=== PATIENT | female | born 1970 | race Caucasian/White ===

== ENCOUNTER 2016-03-14 17:03 | Emergency (ER) | payer MEDICAID ==
[2016-03-14 17:35] VITALS: BMI 27.5
--- NOTE | 2016-03-14 20:17 | DIRPT ---
CLINICAL DATA: 45-year-old female with history of cough and dyspnea. Congestion. Low-grade fever. Upper abdominal pain for the past several days. EXAM: CHEST 2 VIEW COMPARISON: Chest x-ray 03/20/2008. FINDINGS: Lung volumes are low. No consolidative airspace disease. No pleural effusions. No pneumothorax. No pulmonary nodule or mass noted. Pulmonary vasculature and the cardiomediastinal silhouette are within normal limits. IMPRESSION: 1. Low lung volumes without radiographic evidence of acute cardiopulmonary disease. Electronically Signed By: Fred Mackenzie M.D. On: 03/14/2016 20:15
--- NOTE | 2016-03-14 20:32 | EDPRACDOC ---
- General Information Chief Complaint: Flu-Like Symptoms Stated Complaint: COUGH/COUGH/N/V FEVER Time Seen by Provider: 03/14/16 20:24 Mode Of Arrival: Car Home Medications: Home Medications Esomeprazole Magnesium [Nexium] 20 mg PO BID 03/14/16 Levetiracetam [Keppra] 1,500 mg PO BID 03/14/16 Levothyroxine [Synthroid, Levoxyl] 50 mcg PO DAILY 03/14/16 Mirtazapine [Remeron] 7.5 - 15 mg PO HS 03/14/16 Simvastatin [Zocor] 20 mg PO QHS 03/14/16 Sumatriptan Succinate [Imitrex] 100 mg PO DAILY PRN 03/14/16 Azithromycin [Zithromax] 0 mg PO DAILY #6 tablet 03/15/16 Hydrocodone Bit/Homatropine [Hycodan Syrup] 5 ml PO Q6 PRN #120 syrup 03/15/16 Prednisone [Deltasone, Orasone] 40 mg PO DAILY 5 Days 03/15/16 Allergies/Adverse Reactions: Allergies Allergy/AdvReac Type Severity Reaction Status Date / Time No Known Allergies Allergy Verified 03/14/16 17:30 - History of Present Illness Onset: since Saturday HPI: PT HAS MULTIPLE COMPLAINTS, COMPLAINS OF NON-PROD COUGH, CONGESTION, FEVER TO 100, N/V TNTC, STATES UNABLE TO TOLERATE ANY PO INTAKE, HAS HAD "DRY HEAVES" ALL DAY, HAS HAD DIARRHEA TNTC (NONE TODAY), COMPLAINS OF DIFFUSE ABDOMINAL SORENESS AND SORE THROAT. Symptoms Occured: Reports: Spontaneous Duration: Reports: Intermittent Emesis: Reports: Food Particles Recent: Reports: None Pain Quality: Reports: Aching Pain Severity: Mild Pain Location: Reports: Diffuse History of: Denies: Abdominal Surgery, UTI, Ectopic, PID, Urolithiasis, Similar Pain (dx) Relevant History of: Denies: Abdominal Surgery, Diabetes, Contact Exposure, Hydrocephalus, HIV, Immunosuppression, Irritable Bowel Disease, Cystic Fibrosis , Lactose Intolerance, None, O Associated Signs & Symptoms: Reports: Nausea, Vomiting, Diarrhea, Fever, Other. Denies: Frequency, Vaginal Bleeding, Hematemesis, Anorexia, Melena, Dysuria, Urgency, Hematuria, Chills, Vaginal Discharge Oral Intake: Normal Urinary Output: Normal ED Past Medical History - History Reviewed Yes Nurses notes reviewed and agree except as marked - Patient Medical History Cardiac History: Reports: Hypercholesterolemia Respiratory History: Reports: COPD GI/ History: Reports: Gastroesophageal Reflux Psychological History: Reports: Depression (manic) Systemic History: Reports: Hypothyroidism. Denies: Cancer Surgical History: Reports: Hysterectomy - Social Medical History Smoking Status: Heavy tobacco smoker (5 or more cigarettes/day or daily pipe/ cigar) ("VAPES") ETOH: None Substance Abuse: None EDM Review of Systems - Review of Systems Constitutional: Fever. negative: Chills Eyes: negative: Blurred Vision, Double Vision Ears: negative: Drainage Throat: Pain Nose: Congestion Respiratory: Cough. negative: Shortness of Breath, Wheezing Cardiovascular: negative: Chest Pain, Palpitations Gastrointestinal: Diarrhea, Nausea, Pain, Vomiting Genitourinary: negative: Dysuria, Frequency Neurological: negative: Dizziness, Headache, Numbness, Weakness Musculoskeletal: No Symptoms Reported Integumentary: No Symptoms Reported - Physical Exam Constitutional: Alert (Awake), No apparent distress Oriented to: Time, Person, Place Last recorded Vital Signs: Last Vital Signs Temp 99.6 F 03/14/16 17:30 Pulse 132 H 03/14/16 17:34 Resp 18 03/14/16 17:30 BP 129/91 03/14/16 17:34 Pulse Ox 96 03/14/16 17:30 Oxygen Pulse Oxygen Saturation 96 O2 Device Room Air Oxygen Flow Rate Fraction of Inspired Oxygen ( FIO2) - HEENT Head: Normal ( normocephalic) Eye Exam: Normal (PERRL, EOMI, Sclera white) Oropharynx: Red. negative: Tonsillar Hypertrophy, [place] Tympanic Membrane: Normal ENT EAC: Normal TMJ: Normal Nose: No Symptoms Reported (septum midline) Neck: Normal (FROM, trachea at midline) - Respiratory/Cardiovascular Respiratory: Normal - CTA (BBS clear to auscultation without adventitious sounds ) Cardiovascular: Normal (RRR without murmur, gallop or rub) - GI Auscultation: Normal (NABS) Palpation: Normal (Soft,No rebound or guarding, non distended) Tenderness: Diffuse, Mild Hood's Sign: Negative - Musculoskeletal Back: Normal (Non-Tender) Extremities: Normal (Normal tone, Pulses 2+ No cyanosis or edema, FROM) - Integumentary Skin: Normal, Warm, Dry Lymphatics: Normal (no adenopathy) - Neurologic Memory Impaired: Normal Motor Function: Normal (Normal tone, Pulses 2+ No cyanosis or edema, FROM) Cranial Nerve: Normal (CN II-X11 intact sensation, strength 5/5) Cerebellar: Normal Mood Description: Normal Perception: Normal - Differential Diagnosis Dehydration, Gastritis, Gastroenteritis, Pneumonia - Re-evaluation Re-evaluation 1 Re-evaluation Time: 21:40 (STATES SHE FEELS "ABOUT THE SAME", NAUSEA BETTER, RA PULSE OX 88% BUT IN NO DISTRESS) Re-evaluation 2 Re-evaluation Time: 01:09 (IMPROVED, SATS IMPROVED) - Results 03/14/16 21:00 03/14/16 21:00 03/14/16 23:25 Laboratory Results - last 24 hr 03/14/16 03/14/16 03/14/16 20:34 21:00 21:00 WBC 7.0 RBC 5.12 Hgb 17.4 H Hct 50.7 H MCV 99 MCH 34.0 H MCHC 34.4 RDW 14.3 Plt Count 201 MPV 8.0 Neut % (Auto) 59.0 Lymph % (Auto) 32.2 [place] % (Auto) 5.8 Eos % (Auto) 1.2 Baso % (Auto) 1.8 Absolute Neuts (auto) 4.13 Absolute Lymphs (auto) 2.24 Puncture Site pH pCO2 pO2 HCO3 Total CO2 Base Excess FiO2 % Specimen Drawn By Sodium 140 Potassium 3.1 L Chloride 102 Carbon Dioxide 28 Anion Gap 13 BUN 9 Creatinine 0.70 Estimated GFR (MDRD) > 60 Glucose 107 H Calculated Osmolality 268 L Calcium 9.1 Total Bilirubin 1.2 AST 42 H ALT 46 Alkaline Phosphatase 135 H Total Protein 7.3 Albumin 4.1 Lipase 55 Urine Color Yellow Urine Clarity Sl hzy Urine pH 5.0 Ur Specific [place] 1.010 Urine Protein 1+ H Urine Glucose (UA) Neg Urine Ketones Neg Urine Occult Blood Neg Urine Nitrite Neg Urine Bilirubin Neg Urine Urobilinogen 0.2 Ur Leukocyte Esterase 1+ H Urine RBC 0-2 Urine WBC 0-2 Ur Epithelial Cells 2+ Urine Mucus Mod H 03/14/16 21:50 WBC RBC Hgb Hct MCV MCH MCHC RDW Plt Count MPV Neut % (Auto) Lymph % (Auto) [place] % (Auto) Eos % (Auto) Baso % (Auto) Absolute Neuts (auto) Absolute Lymphs (auto) Puncture Site Left radial pH 7.450 pCO2 34.0 L pO2 58.0 L HCO3 23.6 Total CO2 24.6 Base Excess 0.1 FiO2 % 21% Specimen Drawn By Stana Sodium Potassium Chloride Carbon Dioxide Anion Gap BUN Creatinine Estimated GFR (MDRD) Glucose Calculated Osmolality Calcium Total Bilirubin AST ALT Alkaline Phosphatase Total Protein Albumin Lipase Urine Color Urine Clarity Urine pH Ur Specific [place] Urine Protein Urine Glucose (UA) Urine Ketones Urine Occult Blood Urine Nitrite Urine Bilirubin Urine Urobilinogen Ur Leukocyte Esterase Urine RBC Urine WBC Ur Epithelial Cells Urine Mucus - Diagnostic Imaging CXR Image interpreted by: Radiologist CHEST 2 VIEW COMPARISON: Chest x-ray 03/20/2008. FINDINGS: Lung volumes are low. No consolidative airspace disease. No pleural effusions. No pneumothorax. No pulmonary nodule or mass noted. Pulmonary vasculature and the cardiomediastinal silhouette are within normal limits. IMPRESSION: 1. Low lung volumes without radiographic evidence of acute cardiopulmonary disease. CTA CHEST Image interpreted by: Radiologist CT ANGIOGRAPHY CHEST WITH CONTRAST TECHNIQUE: Multidetector CT imaging of the chest was performed using the standard protocol during bolus administration of intravenous contrast. Multiplanar CT image reconstructions and MIPs were obtained to evaluate the vascular anatomy. CONTRAST: 80 cc Isovue 370 COMPARISON: Chest radiograph March 14, 2015 at 1959 hours ; CT chest report dated June 14, 2011 reviewed though images are not available for direct comparison. FINDINGS: PULMONARY ARTERY: Adequate contrast opacification of the pulmonary artery's. Main pulmonary artery is not enlarged. No pulmonary arterial filling defects to the level of the subsegmental branches. MEDIASTINUM: Heart and pericardium are normal, no right heart strain. Prominent epicardial fat pad. Thoracic aorta is normal course and caliber, unremarkable. No lymphadenopathy by CT size criteria. LUNGS: Tracheobronchial tree is patent, no pneumothorax. Low lung volumes. Mild bronchial wall thickening. Patchy dependent ground-glass opacities. Enhancing atelectasis lingula and LEFT lower lobe. SOFT TISSUES AND OSSEOUS STRUCTURES: Diffusely hypodense liver compatible with history of steatosis. Small fat containing RIGHT diaphragmatic hernia versus 16 mm lipoma. No acute process within the included abdomen. Visualized soft tissues and included osseous structures appear normal. Review of the MIP images confirms the above findings. IMPRESSION: No acute pulmonary embolism. Mild bronchial wall thickening can be seen with bronchitis or reactive airway disease without focal consolidation. Dependent ground-glass opacities likely representing atelectasis in this low inspiratory examination. Decision Time to Discharge: 01:10 - Departure Disposition: Home Condition: Stable Final Diagnosis: Acute bronchitis Instructions: Acute Bronchitis (ED) Education/Counseling Given To: Patient Education/Counseling Given Regarding: Diagnosis, Treatment, Prognosis, Follow Up Referrals: Elodia Chanel MD [NonStaff] - One Week Prescriptions: Azithromycin [Zithromax] 0 mg PO DAILY #6 tablet Hydrocodone Bit/Homatropine [Hycodan Syrup] 5 ml PO Q6 PRN #120 syrup PRN Reason: Cough Prednisone [Deltasone, Orasone] 40 mg PO DAILY 5 Days Additional Instructions: Rest, drink plenty of fluids, use Tylenol every 4 hours and Motrin every 6 hours as needed for pain or fever, return to the ED for any worsening symptoms or concerns. PLEASE STOP SMOKING!! CONTINUE YOUR USUAL MEDICATIONS AT HOME.
[2016-03-14] MEDS ORDERED: NS 1,000 ML IV ONE ×2 (20:33→23:33)
[2016-03-14] MEDS ORDERED: ONDANSETRON HCL 4 MG/2 ML VIAL IV ONE (20:33)
[2016-03-14 20:49] VITALS: TEMP 97.8
[2016-03-14 20:53] LABS: LEUKOCYTES/URINE 1+ (NEGATIVE); NITRITE/URINE NEG (NEGATIVE); URINE OCCULT BLOOD NEG (NEG/TRACE)
[2016-03-14 21:00] LABS: RBC/URINE 0-2 (0-5); WBC/URINE 0-2 (0-5)
[2016-03-14] MEDS ORDERED: Albuterol/Ipratropium Neb 3 ML NEB NEB ONE ×2 (21:09→23:31)
[2016-03-14] MEDS ORDERED: IBUPROFEN 800 MG TAB PO ONE (21:09)
[2016-03-14 21:10] LABS: AUTOMATED BASOPHIL 1.8 % (0-2); AUTOMATED EOSINOPHIL 1.2 % (0-5); AUTOMATED LYMPH 32.2 % (17-44); AUTOMATED MONOCYTE 5.8 % (3-10)
[2016-03-14 21:23] LABS: BLOOD UREA NITROGEN 9 MG/DL (7-17); CALCIUM 9.1 MG/DL (8.4-10.2); CALCULATED OSMOLALITY 268 MOs/Kg (270-290); CHLORIDE 102 mEq/L (98-107); GLUCOSE 107 MG/DL (70-99); SODIUM LEVEL 140 mEq/L (137-146); TOTAL PROTEIN 7.3 G/DL (6.3-8.2)
[2016-03-14] MEDS ORDERED: PREDNISONE 10 MG TAB PO ONE (21:41)
[2016-03-14 21:51] VITALS: BP 125/82; PULSE 91
[2016-03-14 22:01] LABS: ALLEN'S TEST PASS; BEb 0.1 (+/- 2); TCO2 24.6 MMOL/L (23-27)
[2016-03-14 22:02] LABS: ABG Draw Site Left Radial
[2016-03-14] MEDS ORDERED: Pharmacy Review for Metformin - IV Contrast Given SCH (23:00)
--- NOTE | 2016-03-14 23:25 | DIRPT ---
CLINICAL DATA: Shortness of breath, cough, RIGHT-sided chest pain, nausea, vomiting and diarrhea for 4 days. Low-grade fever. History of fatty liver. EXAM: CT ANGIOGRAPHY CHEST WITH CONTRAST TECHNIQUE: Multidetector CT imaging of the chest was performed using the standard protocol during bolus administration of intravenous contrast. Multiplanar CT image reconstructions and MIPs were obtained to evaluate the vascular anatomy. CONTRAST: 80 cc Isovue 370 COMPARISON: Chest radiograph March 14, 2015 at 1959 hours ; CT chest report dated June 14, 2011 reviewed though images are not available for direct comparison. FINDINGS: PULMONARY ARTERY: Adequate contrast opacification of the pulmonary artery's. Main pulmonary artery is not enlarged. No pulmonary arterial filling defects to the level of the subsegmental branches. MEDIASTINUM: Heart and pericardium are normal, no right heart strain. Prominent epicardial fat pad. Thoracic aorta is normal course and caliber, unremarkable. No lymphadenopathy by CT size criteria. LUNGS: Tracheobronchial tree is patent, no pneumothorax. Low lung volumes. Mild bronchial wall thickening. Patchy dependent ground-glass opacities. Enhancing atelectasis lingula and LEFT lower lobe. SOFT TISSUES AND OSSEOUS STRUCTURES: Diffusely hypodense liver compatible with history of steatosis. Small fat containing RIGHT diaphragmatic hernia versus 16 mm lipoma. No acute process within the included abdomen. Visualized soft tissues and included osseous structures appear normal. Review of the MIP images confirms the above findings. IMPRESSION: No acute pulmonary embolism. Mild bronchial wall thickening can be seen with bronchitis or reactive airway disease without focal consolidation. Dependent ground-glass opacities likely representing atelectasis in this low inspiratory examination. Electronically Signed By: Jose Raul Rothman M.D. On: 03/14/2016 23:22
== END 2016-03-15 01:31 | disposition home or self-care (01) ==
LOC: ED 17:03
DX: J20.9 Acute bronchitis, unspecified (principal)
CPT/HCPCS: 36415; 36600; 71020; 71275; 80053; 81001; 82803; 83690; 85025; 94640; 96361; 96374; 99283; A9698; J2405; J3490; J7620